=== PATIENT | female | born 1990 | race Two or more races ===

== ENCOUNTER 2018-12-01 08:45 | Inpatient (IN) | payer OTHER ==
[2018-12-01] MEDS ORDERED: AMPICILLIN SODIUM 2 GM VIAL ONE (09:16)
[2018-12-01] MEDS ORDERED: LIDOCAINE HCL 1% PRESERVATIVE FREE - 30ML VIAL ONE (09:47)
[2018-12-01] MEDS ORDERED: OXYTOCIN 20 UNITS in 0.9% NS 20 UNIT/1,000 ML INFUS.BAG IV ONE (09:47)
[2018-12-01 10:11] LABS: BASO % 0.3 % (0-2.0); EOS % 0.1 % (0-4.5); HEMATOCRIT 35.9 % (32.4-45.2); HEMOGLOBIN 11.8 GM/dL (10.7-15.3); LYMPH % 16.7 % (8-40); MCH 27.7 pg (25.7-33.7); MCHC 32.9 g/dl (32.0-36.0); MEAN CELL VOLUME 84.3 fl (80-96); MEAN PLT VOLUME 11.2 fl (7.5-11.1); MONO % 5.5 % (3.8-10.2); NEUT % 77.4 % (42.8-82.8); PLATELET COUNT 128 K/MM3 (134-434); RBC 4.25 M/mm3 (3.60-5.2); RDW 13.5 % (11.6-15.6)
[2018-12-01 10:31] LABS: BLOOD UREA NITROGEN 6.8 mg/dL (7-18); CREATININE 0.7 mg/dL (0.55-1.3); POTASSIUM 4.5 mmol/L (3.5-5.1)
[2018-12-01] MEDS ORDERED: ELECTROLYTE-148 SOLN 1,000 ML IV SCH (10:45)
[2018-12-01 10:50] LABS: INR 0.85 (0.83-1.09)
[2018-12-01 10:52] LABS: ACTIVATED PTT 29.3 SECONDS (25.2-36.5)
--- NOTE | 2018-12-01 10:52 | HP ---
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: Alzheimer's, CVA, Dementia, Migraine, Multiple Sclerosis, Peripheral Neuropathy, Parkinson's, Seizure, Syncope, TIA, Vertigo, Other Cardiovascular: No: AFIB, Aneurysm, Aortic Insufficiency, Aortic Stenosis, CAD, CHF, Deep Vein Thrombosis, HTN, Hyperlipdemia, CT, Mitral Insufficiency, Mitral Stenosis, Murmur, Pulmonary Hypertension, Other Pulmonary: No: Asthma, Bronchitis, Cancer, COPD, O2 Dependent, Pneumonia, Previously Intubated, Pulmonary Embolus, Pulmonary Fibrosis, Sleep Apnea, Other Gastrointestinal: No: Ascites, Cancer, Constipation, Crohn's Disease, Diverticulitis, Diverticulosis, Esophageal Varices, Gastritis, GERD, GI Bleed, Hemorrhoids, Hiatal Hernia, Inflamatory Bowel Disease, Irritable Bowel Disease, Pancreatitis, Peptic Ulcer Disease, Ulcerative Colitis, Other Hepatobiliary: No: Cirrhosis, Cholelithiasis, Cholecystitis, Choledocholithiasis , Hepatitis A, Hepatitis B, Hepatitis C, Other Renal/: No: Renal Failure, Renal Inusuff, BPH, Cancer, Hematuria, Hemodialysis , Neurogenic Bladder, Renal Calculi, UTI, Other Reproductive: No: Ectopic , Endometriosis, Fibroids, PID, Polycystic Ovary Syndrome, Postmenopausal, Other ...: 1 ...Para: 0 ...EDC by Dates: 12/26/18 Heme/Onc: No: Anemia, B12 Deficiency, Bleeding Disorder, Cancer, Current Chemotherapy, Current Radiation Therapy, Hemochromatosis, Hypercoaguable State, Myeloproliferative Synd, Sickle Cell Disease, Sickle Cell Trait, Thrombocytopenia, Other Infectious Disease: No: AIDS, C-Diff, Herpes Zoster, HIV, MRSA, STD's, Tuberculosis, VREF, Other Psych: No: Addictions, Anxiety, Bipolar, Depression, Panic, Psychosis, Schizophrenia, Other Musculoskeletal: No: Bursitis, Chronic low back pain, Hemiparesis, Hemiplegia, Osteoarthritis, Paraplegia, Other Rheumatology: No: Fibromyalgia, Gout, Lupus, Rheumatoid Arthritis, Sarcoidosis, Vasculitis, Other ENT: No: Allergic Rhinitis, Sinusitis, Other Endocrine: No: [place]'s Disease, [place]'s Disease, Diabetes Insipidus, Diabetes Mellitus, Hyperparathyroidism, Hyperthyroidism, Hypothyroidism, Osteopenia, SIADH, Other Dermatology: No: Basal Cell, Cellulitis, Eczema, Melanoma, Psoriasis, Squamous Cell, Other - Past Surgical History Past Surgical History: No: None, AAA Repair, AICD, Amputation, Appendectomy, Arthrosocopy, AV Fistula/Graft, Bariatric Surgery, Breast Biopsy, Bypass, CABG, Carotid Endarterectomy, Cataract Removal, Cholecystectomy, Colectomy, Colonoscopy, Colostomy, Craniotomy, , Cystectomy, Hernia Repair, Hysterectomy, Ileal Conduit, Ileosotomy, Joint Replacement, Kidney Transplant, Laminectomy, Liver Transplant, Mastectomy, Nephrectomy, Oopherectomy, Orchiectomy, Permanent Pacemaker, Prostatectomy, Splenectomy, Stent, Thoracotomy , TURP, Tonsillectomy, Tubal Ligation, Upper Endoscopy, Valve Replacement, Vasectomy, Vein Stripping/Ligation Hx Myomectomy: No Hx Transabdominal Cerclage: No - Advance Directives Advance Directives: Yes: Living Will - Smoking History Smoking history: Never smoked Have you smoked in the past 12 months: No - Alcohol/Substance Use Hx Alcohol Use: No History of Substance Use: reports: None - Social History Usual Living Arrangement: No: Alone, With Spouse, With Parent, With Significant Other, With Child, Assisted Living, [facility], Other History of Recent Travel: No Family Disease History - Family Disease History Family History: Denies Review of Systems - Review of Systems Constitutional: reports: No Symptoms Eyes: reports: No Symptoms HENT: reports: No Symptoms Neck: reports: No Symptoms Cardiovascular: reports: No Symptoms Respiratory: reports: No Symptoms Gastrointestinal: reports: No Symptoms Genitourinary: reports: No Symptoms Breasts: reports: No Symptoms Reported Musculoskeletal: reports: No Symptoms Integumentary: reports: No Symptoms Neurological: reports: No Symptoms Endocrine: reports: No Symptoms Hematology/Lymphatic: reports: No Symptoms Psychiatric: reports: No Symptoms Physical Exam - Maternity Constitutional: Yes: Well Nourished, No Distress, Calm Eyes: Yes: WNL, Conjunctiva Clear, EOM Intact HENT: Yes: WNL, Atraumatic, Normocephalic Neck: Yes: WNL, Supple, Trachea Midline Cardiovascular: Yes: WNL, Regular Rate and Rhythm Lungs: Clear to auscultation Breast(s): Yes: WNL - Abdominal Exam/OB Fundal Height: 36 Number of Fetuses: Single Presentation: Vertex Contractions: Yes Regularity: Regular Intensity: Moderate Monitor Mode: External Heart Rate Location: [facility] Category: I Accelerations: Uniform Decelerations: None - Vaginal Exam/OB Vaginal Bleediing: No Speculum Exam: No Dilatation (cm): 8 Effacement (%): 100 Amniotic Membrane Status: Ruptured Nitrazine Test: Positive Amniotic Fluid: Yes: Clear Presentation: Vertex/Position Station: -1 - Physical Exam Musculoskeletal: Yes: WNL Extremities: Yes: WNL Edema: No Integumentary: Yes: WNL Deep Tendon Reflex Grade: Normal +2 ...Motor Strength: WNL Psychiatric: Yes: WNL, Alert, Oriented - Labs Lab Results: CBC, BMP 12/01/18 09:15 12/01/18 09:15 Hemorrhage Risk Assessment - Risk Factors Risk Score: 0 Risk Level: Low Risk Assessment/Plan for labor
[2018-12-01] MEDS ORDERED: AMPICILLIN - 2 GM in SODIUM CHLORIDE 100 ML IVPB ONE (10:54)
--- NOTE | 2018-12-01 10:54 | PN ---
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
[2018-12-01] MEDS ORDERED: BENZOCAINE 28 GM HEMORRHOIDAL OINTMENT TP PRN (10:55)
[2018-12-01] MEDS ORDERED: IBUPROFEN 600 MG TABLET (FP) PO PRN (10:55)
[2018-12-01] MEDS ORDERED: ACETAMINOPHEN 325 MG TABLET (FP) PO PRN (10:55)
[2018-12-01] MEDS ORDERED: BISACODYL 10 MG SUPP.RECT RC PRN (10:55)
[2018-12-01] MEDS ORDERED: METHYLERGONOVINE MALEATE 0.2 MG/1 ML AMP IM PRN (10:55)
[2018-12-01] MEDS ORDERED: BENZOCAINE 20% 57 GM BOTTLE TP PRN (10:55)
[2018-12-01] MEDS ORDERED: oxyCODONE HCL 5 MG TABLET PO PRN (10:55)
[2018-12-01] MEDS ORDERED: OXYTOCIN 20 UNITS in 0.9% NS 20 UNIT/1,000 ML INFUS.BAG IV SCH (11:00)
[2018-12-01 11:08] VITALS: BMI 25.4
[2018-12-01 12:14] LABS: RPR NONREACTIVE (NONREACTIVE)
[2018-12-01] MEDS: WITCH HAZEL 50% (TUCKS) 40 PAD/JAR PAD TP PRN (16:46)
[2018-12-01] MEDS: IBUPROFEN 600 MG TABLET (FP) PO PRN (23:31)
[2018-12-01] MEDS: ACETAMINOPHEN 325 MG TABLET (FP) PO PRN (23:31)
[2018-12-02 07:51] LABS: BASO % 0.4 % (0-2.0); EOS % 0.1 % (0-4.5); HEMATOCRIT 30.2 % (32.4-45.2); HEMOGLOBIN 9.9 GM/dL (10.7-15.3); LYMPH % 18.6 % (8-40); MCHC 32.9 g/dl (32.0-36.0); MEAN CELL VOLUME 85.2 fl (80-96); MONO % 4.3 % (3.8-10.2); NEUT % 76.6 % (42.8-82.8); PLATELET COUNT 121 K/MM3 (134-434); RBC 3.54 M/mm3 (3.60-5.2); RDW 13.6 % (11.6-15.6); WHITE BLOOD COUNT 11.3 K/mm3 (4.0-10.0)
[2018-12-02] MEDS: ACETAMINOPHEN 325 MG TABLET (FP) PO PRN (08:37)
[2018-12-02] MEDS: IBUPROFEN 600 MG TABLET (FP) PO PRN (08:37)
--- NOTE | 2018-12-02 17:22 | PN ---
Post Progress Note Type of Delivery: Vital Signs: Vital Signs Temperature 98.6 F 12/02/18 10:00 Pulse Rate 98 H 12/02/18 05:41 Respiratory Rate 18 12/02/18 10:00 Blood Pressure 120/79 12/02/18 10:00 O2 Sat by Pulse Oximetry (%) 100 12/01/18 11:05 Breast Exam: Yes: Soft Uterus: Yes: Fundus Firm Incision: Yes: Dressing dry and intact Abdomen/GI: Yes: Abdomen soft, Passing flatus, Tolerating PO Lochia: Yes: Serosa Lochia, amount: Small Extremities: Yes: Calves non-tender Perineum: Yes: Laceration - Labs Labs: CBC WBC 11.3 K/mm3 (4.0-10.0) H 12/02/18 07:00 RBC 3.54 M/mm3 (3.60-5.2) L 12/02/18 07:00 Hgb 9.9 GM/dL (10.7-15.3) L 12/02/18 07:00 Hct 30.2 % (32.4-45.2) L D 12/02/18 07:00 MCV 85.2 fl (80-96) 12/02/18 07:00 MCH 28.0 pg (25.7-33.7) 12/02/18 07:00 MCHC 32.9 g/dl (32.0-36.0) 12/02/18 07:00 RDW 13.6 % (11.6-15.6) 12/02/18 07:00 Plt Count 121 K/MM3 (134-434) L 12/02/18 07:00 MPV 11.0 fl (7.5-11.1) 12/02/18 07:00 Absolute Neuts (auto) 8.7 K/mm3 (1.5-8.0) H 12/02/18 07:00 Neutrophils % 76.6 % (42.8-82.8) 12/02/18 07:00 Lymphocytes % 18.6 % (8-40) 12/02/18 07:00 Monocytes % 4.3 % (3.8-10.2) 12/02/18 07:00 Eosinophils % 0.1 % (0-4.5) 12/02/18 07:00 Basophils % 0.4 % (0-2.0) 12/02/18 07:00 Nucleated RBC % 0 % (0-0) 12/02/18 07:00 Assessment/Plan dc pt home tomorrow
--- NOTE | 2018-12-02 17:23 | DS ---
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: Vital Signs Temperature 98.6 F 12/02/18 10:00 Pulse Rate 98 H 12/02/18 05:41 Respiratory Rate 18 12/02/18 10:00 Blood Pressure 120/79 12/02/18 10:00 O2 Sat by Pulse Oximetry (%) 100 12/01/18 11:05 Constitutional: Yes: Well Nourished, No Distress, Calm Eyes: Yes: WNL, Conjunctiva Clear, EOM Intact HENT: Yes: WNL, Atraumatic, Normocephalic Neck: Yes: WNL, Supple, Trachea Midline Cardiovascular: Yes: WNL, Regular Rate and Rhythm Respiratory: Yes: WNL, Regular, CTA Bilaterally Gastrointestinal: Yes: WNL, Normal Bowel Sounds, Soft ...Rectal Exam: Yes: WNL Renal/: Yes: WNL Pelvis: Yes: WNL External Genitalia: Yes: Normal Internal Exam Deferred: No Vaginal Exam: Yes: Normal Cervix: Yes: Normal Uterus: Yes: Normal ....Post : Yes: Uterus firm, Uterus non-tender Labs: CBC, BMP 12/02/18 07:00 12/01/18 09:15 Delivery - Delivery Type of Anesthesia: Local Episiotomy/Laceration: Right Mediolateral EBL (cc): 250 Delivery, Single - Stages of Labor Date 1st Stage Initiatied: 12/01/18 Time 1st Stage Initiated: 05:30 Date 2nd Stage Initiated: 12/01/18 Time 2nd Stage Initiated: 06:00 Date of Delivery: 12/01/18 Time of Delivery: 10:07 Time Placenta Delivered: 10:10 Placenta: Yes: Spontaneous - Condition 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
[2018-12-02] MEDS: WITCH HAZEL 50% (TUCKS) 40 PAD/JAR PAD TP PRN (21:49)
[2018-12-02] MEDS ORDERED: SENNOSIDES/DOCUSATE COMBO (SENNA PLUS) TABLET (UD) PO PRN (22:00)
[2018-12-03 08:42] VITALS: BP 121/69; PULSE 67; TEMP 98.4
== END 2018-12-03 10:20 | disposition home or self-care (01) | DRG 560 ==
LOC: JLDR 08:45 → J3W 13:08
PROVIDERS: ADMIT Obstetrics & Gynecology; ATTEND Obstetrics & Gynecology
PROC: 10E0XZZ Delivery of Products of Conception, External Approach (ICD-10-PCS; principal; 2018-12-01)
PROC: 0W8NXZZ Division of Female Perineum, External Approach (ICD-10-PCS; 2018-12-01)
DX: O80 Encounter for full-term uncomplicated delivery (principal); Z3A.36 36 weeks gestation of pregnancy; Z37.0 Single live birth
CPT/HCPCS: 36415; 59409; 80048; 85025; 85610; 85730; 86593; 86850; 86900; 86901; 87389